=== PATIENT | female | born 1980 | race Caucasian/White ===

== ENCOUNTER 2018-07-17 23:57 | Emergency (ER) | payer OTHER ==
[2018-07-18 00:25] LABS: PLATELET COUNT 212 10^3/uL (150-400)
--- NOTE | 2018-07-18 01:13 | EDPHY ---
H & P Stated Complaint: new onset seizure Time Seen by Provider: 07/18/18 01:08 HPI/ROS: HPI The patient presents with concern for seizure which occurred just prior to arrival. The patient has a remote history of TBI about 8 years ago after a skiing accident which caused what sounds like delirium, requiring intubation. MRI and EEG at the time were unremarkable per her report. She has been feeling well over the last several days though had an episode of lightheadedness while making dinner tonight. She went to bed in her usual fashion and about 5-10 minutes after going to sleep her noticed a loud guttural scream and then convulsions throughout her entire body which lasted for 2-5 minutes. She bit her lip and was drooling. She was completely unresponsive. She then stopped convulsing though continued to be unresponsive taking deep breaths. When paramedics arrived she was more awake though still confused. She has improved since her arrival in the emergency department and is now awake and alert. She did not have any urinary incontinence. She has no prior history of similar episode. She has had no new medications, changes in sleep, new stressors, dietary changes over the last week. REVIEW OF SYSTEMS 10 systems were reviewed and negative with the exception of the elements mentioned in the history of present illness. PMHx: Prior mild TBI 8 years ago after a skiing accident Soc Hx: Here with her , has 2 children PHYSICAL General Appearance: Alert, no distress Eyes: Pupils equal and round no pallor or injection ENT, Mouth: Mucous membranes moist Respiratory: There are no retractions, lungs are clear to auscultation Cardiovascular: Regular rate and rhythm Gastrointestinal: Abdomen is soft and non-tender, no masses, bowel sounds normal Neurological: A&O x3, cranial nerves 2-12 intact, 5/5 strength in her upper and lower extremities which is symmetric, normal finger to nose testing Skin: Warm and dry, no rashes Musculoskeletal: Neck is supple non tender Extremities: symmetrical, full range of motion Psychiatric: Patient is oriented X 3, there is no agitation Source: Patient, Family, EMS Exam Limitations: No limitations - Personal History LMP (Females 10-55): Unknown Current Tetanus/Diphtheria Vaccine: Yes Current Tetanus Diphtheria and Acellular Pertussis (TDAP): Yes - Medical/Surgical History Hx Asthma: No Hx Chronic Respiratory Disease: No Hx Diabetes: No Hx Cardiac Disease: No Hx Renal Disease: No Hx Cirrhosis: No Hx Alcoholism: No Hx HIV/AIDS: No Hx Splenectomy or Spleen Trauma: No Other PMH: c section - Social History Smoking Status: Never smoked Constitutional: Initial Vital Signs Temperature (C) 36.7 C 07/18/18 00:07 Heart Rate 106 H 07/18/18 00:07 Respiratory Rate 18 07/18/18 00:07 Blood Pressure 135/91 H 07/18/18 00:07 O2 Sat (%) 97 07/18/18 00:07 O2 Delivery Mode Room Air Allergies/Adverse Reactions: No Known Allergies Allergy (Unverified 07/18/18 00:07) Home Medications: Medication Instructions Recorded NK [No Known Home Meds] 07/18/18 Medical Decision Making Differential Diagnosis: This is a healthy 38-year-old female with remote history of mild TBI who presents brought in by ambulance for an episode of ALOC with shaking of upper and lower extremities, unresponsiveness, lip biting, followed by confused sedated state which is now mostly resolved. Suspects new onset seizure in her case. Would consider syncope, however shaking episode was prolonged in there was tongue biting. Here, her neurologic exam is normal, she is afebrile, I do not think we need to pursue CT of head or lumbar puncture at this time. Given her prior TBI I question if this could have provoked seizure. Patient had labs checked in the emergency department that were unremarkable. She had no ongoing seizure activity here. Given first-time seizure, will not start on antiepileptic drug. Plan for follow-up with Neurology for possible outpatient EEG/MRI. - Data Points Laboratory Results: Laboratory Results 07/18/18 00:12 07/18/18 00:12 07/18/18 07/18/18 07/18/18 00:12 00:12 00:12 WBC 6.54 10^3/uL 10^3/uL (3.80-9.50) RBC 4.87 10^6/uL 10^6/uL (4.18-5.33) Hgb 14.3 g/dL g/dL (12.6-16.3) Hct 43.4 % % (38.0-47.0) MCV 89.1 fL fL (81.5-99.8) MCH 29.4 pg pg (27.9-34.1) MCHC 32.9 g/dL g/dL (32.4-36.7) RDW 12.6 % % (11.5-15.2) Plt Count 212 10^3/uL 10^3/uL (150-400) MPV 11.1 fL fL (8.7-11.7) Neut % (Auto) 40.5 % % (39.3-74.2) Lymph % (Auto) 44.8 % % (15.0-45.0) [place] % (Auto) 11.0 % % (4.5-13.0) Eos % (Auto) 2.9 % % (0.6-7.6) Baso % (Auto) 0.6 % % (0.3-1.7) Nucleat RBC Rel Count 0.0 % % (0.0-0.2) Absolute Neuts (auto) 2.65 10^3/uL 10^3/uL (1.70-6.50) Absolute Lymphs (auto) 2.93 10^3/uL 10^3/uL (1.00-3.00) Absolute Monos (auto) 0.72 10^3/uL 10^3/uL (0.30-0.80) Absolute Eos (auto) 0.19 10^3/uL 10^3/uL (0.03-0.40) Absolute Basos (auto) 0.04 10^3/uL 10^3/uL (0.02-0.10) Absolute Nucleated RBC 0.00 10^3/uL 10^3/uL (0-0.01) Immature Gran % 0.2 % % (0.0-1.1) Immature Gran # 0.01 10^3/uL 10^3/uL (0.00-0.10) Sodium 138 mEq/L mEq/L (135-145) Potassium 4.1 mEq/L mEq/L (3.5-5.2) Chloride 104 mEq/L mEq/L (97-110) Carbon Dioxide 18 mEq/l L mEq/l (22-31) Anion Gap 16 mEq/L H mEq/L (6-14) BUN 16 mg/dL mg/dL (7-23) Creatinine 0.9 mg/dL mg/dL (0.6-1.0) Estimated GFR > 60 Glucose 98 mg/dL mg/dL (70-100) Calcium 9.4 mg/dL mg/dL (8.5-10.4) Total Bilirubin 0.3 mg/dL mg/dL (0.1-1.4) AST 24 IU/L IU/L (14-46) ALT 34 IU/L IU/L (9-52) Alkaline Phosphatase 34 IU/L L IU/L (38-126) Total Protein 7.2 g/dL g/dL (6.3-8.2) Albumin 4.7 g/dL g/dL (3.5-5.0) Beta HCG, Qual NEGATIVE Ethyl Alcohol < 10 mg/dL mg/dL (0-10) Departure - Departure Disposition: Home, Routine, Self-Care Clinical Impression: New onset seizure Condition: Good Instructions: New-Onset Seizure in Adults (ED) Additional Instructions: Please make sure to get plenty of rest, eat well, avoid alcohol. You should avoid driving a car until you have been cleared by a neurologist. I have given you the phone number for our local Neurology group. You should call tomorrow to arrange for an appointment. You may need a referral from her primary care physician. If you have a 2nd seizure, you should either return to the emergency department or call your primary care doctor immediately if it does not last for more than 5 min. Referrals: [facility] [Provider Group] - As per Instructions
[2018-07-18 02:43] VITALS: BP 128/72
== END 2018-07-18 02:42 | disposition home or self-care (01) ==
DX: R56.9 Unspecified convulsions (principal); Z87.820 Personal history of traumatic brain injury
CPT/HCPCS: G0480

== ENCOUNTER → 2018-07-24 | Outpatient (CLI) | payer OTHER | LOC: FIMAGING 10:01 | PROVIDERS: ATTEND Psychiatry & Neurology Neurology | DX: J34.1 Cyst and mucocele of nose and nasal sinus (principal); R90.89 Other abnormal findings on diagnostic imaging of central nervous system | CPT/HCPCS: 70551-PN ==

== ENCOUNTER → 2018-08-19 | Outpatient (CLI) | payer OTHER | LOC: FCPNEURO 08:17 ==